=== PATIENT | female | born 1965 | race Caucasian/White ===

== ENCOUNTER → 2025-05-25 09:29 | Outpatient (REF) | payer OTHER, SELFPAY | LOC: RAD 09:29 | PROVIDERS: ATTENDING PHYSICIAN Surgery Vascular Surgery; FAMILY PHYSICIAN Nurse Practitioner Family | DX: I65.23 Occlusion and stenosis of bilateral carotid arteries (principal) | CPT/HCPCS: 70496; 70498; Q9967 ==

== ENCOUNTER 2025-07-02 06:13 | Inpatient (IN) | payer OTHER, SELFPAY ==
[2025-06-29 09:15] VITALS: BMI 25.3
[2025-06-29 10:07] LABS: Hematocrit 41.8 % (37.0-47.0); Hemoglobin 14.0 g/dL (12.0-16.0); Mean Corp Hgb Conc. 33.5 g/dL (33.0-37.0); Mean Corpuscular Volume 92.5 fL (81.0-99.0); Nucleated Red Blood Cells % 0 %; Platelet Count 238 10^3/uL (130-400); Red Cell Dist. Width 11.9 % (11.5-14.5)
[2025-06-29 10:14] LABS: INR 0.96; PT 13.0 Sec (11.4-14.6)
[2025-06-29 10:15] LABS: APTT 27.0 Sec (23.4-35.0)
[2025-06-29 10:39] LABS: Blood Urea Nitrogen 13 mg/dl (7-17); Calcium 10.0 mg/dl (8.4-10.2); Carbon Dioxide 24 mmol/L (22-30); Chloride 106 mmol/L (98-107); Estimated Creatinine Clearance 80 ml/min; Glucose 144 mg/dl (70-99); Potassium 4.6 mmol/L (3.5-5.1); Sodium 141 mmol/L (135-145); eGFR > 60.00
[2025-07-02] VITALS (8 sets, daily range): BP systolic 98–161; BP diastolic 61–84; BMI 25.4
[2025-07-02] MEDS: PERIDEX 0.12% ORAL RINSE 15 ML PO (06:44)
[2025-07-02] MEDS: NSS 500 IV (06:44)
[2025-07-02] MEDS: BACTROBAN NASAL 1 GRAM NASAL (06:44)
--- NOTE | 2025-07-02 07:09 | W.SUR.PREOP ---
Pre-Operative Surgical Note
-
I have examined this patient prior to the performance of the scheduled procedure.
The patient's condition is unchanged from the time of the current History and
Physical and the patient is able to undergo the scheduled procedure.
--- NOTE | 2025-07-02 09:27 | OR.RPT ---
Operative Report
Operative Report
PROCEDURE DATE: 07/02/2025
Preoperative diagnosis: Critical left carotid artery stenosis, asymptomatic.
Postoperative diagnosis: Same
Procedure: Left carotid endarterectomy with bovine pericardial patch angioplasty and intraoperative EEG/SSEP monitoring. Intraoperative temporary shunt placement.
Surgeon: Gabo
Rotor Casting Machine Setup Operator: RHEA Ko, required for all aspects of procedure including assistance with traction/countertraction, following a suture line, assistance with closure.
Complications: None
Anesthesia: General
Indications for procedure:
Severe critical left carotid artery stenosis. Risk/benefits/alternatives of endarterectomy fully discussed. Patient understood all wished to proceed.
Description of procedure:
Patient was identified brought to the operating room placed on the table in supine position. After the adequate administration of anesthesia and perioperative antibiotics she was prepped and draped in the standard surgical fashion. A standard
preoperative timeout was undertaken and everybody was in agreement the plan. A standard longitudinal incision was made in the left neck that was carried through the skin subcutaneous tissue. Using the electrocautery dissection was carried through
the platysma muscle layer and then alongside the anterior medial border of the sternocleidomastoid muscle. Then using a combination of sharp dissection with the Metzenbaum scissors and electrocautery I dissected along the anterior medial border of
the internal jugular vein. The common facial vein branch was ligated between silk ties and then divided. I then deepened my retraction. The common carotid artery was identified and carefully dissected away from the surrounding structures take
great care to avoid any injury to the structures. A vessel loop was passed around it which was double looped, but not yet tightened. Note the vagus nerve was clearly visualized in its usual course lateral/posterior lateral to the common carotid
artery, and was protected from harm's way. I then continued my dissection up the common carotid artery to the bulb staying only on the anterior surface of the carotid artery. Then I carried the dissection up to the internal carotid artery and then
to the distal internal carotid artery. I identified where it was soft and carefully circumferentially dissected the internal carotid artery with minimal mobilization and passed a vessel loop around it. Note the hypoglossal nerve was visualized and
was protected from harm's way. The patient was given an appropriate dose of heparin 6000 units. Next I dissected the anterior surface of the external carotid artery and superior thyroid branches. These were then carefully circumferentially
dissected with minimal mobilization and vessel loops passed around these which were double looped but not yet tightened. After 3 minutes of heparin circulation time and confirmation of optimization of the blood pressure with my anesthesiology
colleagues, I clamped the distal internal carotid artery where it was soft. There was no immediate EEG or SSEP changes. After 1 minute of test clamp time there was no changes noted. Therefore at this point, the vessel loops on the external
carotid artery and superior thyroid branches were tightened and the common carotid artery was clamped where it was soft proximally. An arteriotomy was made on the common carotid artery with an 11 blade and extended using a Quan scissor. I
extended the arteriotomy onto the internal carotid artery beyond the origin, slightly more distally where the plaque ended.. Notes the plaque was noted to be predominantly soft plaque as noted on CT scan, resulting in severe stenosis as well. A
Schlater was then used to begin to endarterectomize the plaque. It was at this point, that there were EEG changes with slowing. Therefore we quickly prepared a shunt. (In [place] shunt). The shunt was inserted into the internal carotid artery
distally, and allowed to backbleed. (Vessel loop had been placed temporarily around the internal carotid artery to control for backbleeding from the internal carotid artery). Next, I inserted the shunt into the common carotid artery (again vessel
loop had been placed which was double looped and now tightened around the shunt). Distally I exchanged my vessel loop for a shunt clamp. EEG tracings returned to baseline.
At this point, an endarterectomy plane was created, and the plaque was then endarterectomized. Distally I feathered the plaque out to a nice clean endpoint in the distal internal carotid artery. Next I endarterectomized the intima back to normal
intima in the common carotid artery, and the intima was cut flush there. I then grasped the plaque and everted plaque out of the origin of the external carotid artery. The plaque was then sent off for specimen. The origin of the external carotid
artery was carefully visualized and any fine debris were removed with fine forceps. Proximal and distal endpoints were then carefully inspected. Any fine debris was removed with fine forceps, and the intima was noted to be nicely adherent
proximally and distally. Next any fine debris were removed throughout the endarterectomy bed with fine forceps. I then flushed heparinized saline. I was very satisfied. Then, I used a bovine pericardial patch to sew a patch angioplasty with a
running 6-0 Prolene suture. I ran the suture line around, but prior to completing the suture line, I removed the shunt. The internal and common carotid artery were reclamped. Now I quickly completed my suture line. Prior to fully completing and
tying down my suture line, I backbled sequentially each branch and reclamped each branch prior to unclamping the next branch. I then irrigated with heparinized saline. Then I completed and tied down my suture line. We then restored flow in the
common carotid and external carotid arteries. Finally, we released flow in the internal carotid artery. Note there was again temporarily slowing on EEG tracings after the shunt was removed. But immediately upon releasing the internal carotid
artery clamp, EEG baselines resume to normal. There was excellent pulsatile flow in all 3 vessels. There was an excellent Doppler signal in the internal carotid artery distal to the patch with a good normal low resistance Doppler signal. There
was a good Doppler signal in the external carotid artery as well. A couple 6-0 Prolene otphez-[id number]-pbpjd sutures were placed along any bleeding points along the suture line. Protamine was given to reverse the heparin. Hemostasis was completely
achieved. We then irrigated and confirmed full hemostasis. We then closed in layers with 2-0 Vicryl layer to reapproximate the sternocleidomastoid muscle, followed by 3-0 Vicryl platysma muscle running layer, followed by 4-0 Monocryl subcuticular
stitch. Dermabond was applied. The patient tolerated procedure well. She awoke moving all extremities to command with tongue in the midline. All sponge, needle, instrument counts were correct at the end of the case. Patient was transported to
recovery room in stable condition.
--- NOTE | 2025-07-02 09:30 | W.SUR.POST ---
Surgical Immediate Post Op
Note
Pre Op Diagnosis: Left carotid stenosis
Post Op Diagnosis: Left carotid stenosis
Procedure Performed: Left carotid endarterectomy with bovine patch angioplasty under EEG monitoring
Primary Surgeon: Arnel Ayon MD
Hydraulic Press In Operator: MASSIEL Maya
Anesthesia: GETA
Estimated Blood Loss: 25ml
Fluids: See anesthesia flow sheet
Drains/Shunts: N/A
Specimens/Cultures: Left carotid plaque
Doppler/Duplex/Angio (Y/N): Y, Doppler
Complications: None
Operative Findings: Required intraoperative shunting, upon awakening from anesthesia moved BL UE and LE to command and spontaneously
[2025-07-02] MEDS: DILAUDID 0.5 MG IV (10:10)
[2025-07-02] MEDS: DILAUDID 0.25 MG IV (10:26)
[2025-07-02 10:45] LABS: Hematocrit 35.6 % (37.0-47.0); Hemoglobin 12.2 g/dL (12.0-16.0); Mean Corp Hgb Conc. 34.3 g/dL (33.0-37.0); Mean Corpuscular Volume 91.0 fL (81.0-99.0); Platelet Count 214 10^3/uL (130-400); Red Cell Dist. Width 11.9 % (11.5-14.5)
--- NOTE | 2025-07-02 11:40 | PTCARENOTE ---
Received pt from PACU monitored with RN, & left radial arterial line transduced. Pt is awake and alert, no neurological deficits upon arrival. Left neck incision DICE TABLE OPERATOR with Dermabond surgical adhesive. Incision is approximated with slight ecchymosis
along the incision line. Ice pack intact. Left hand #20g protective catheter flushed and patent. 0.9nss@80ml/hr started. Left AC#18g protective catheter flushed and patent. Left radial arterial line transduced, calibrated and monitored with all
ports patent and secured. Biopatch present at insertion site. Pt was instructed to limit movement of her left wrist to ensure accurate BP measurement. She was informed of the plan of care regarding hourly neuro checks, expected ambulation time, use
of call fields and visiting policy. She verbalized her understanding. Lungs CTA, 2 liters nasal cannula 98%. BSX4 & hyperactive. S/P void in PACU. Safe environment maintained.
[2025-07-02] MEDS: NSS 1000 IV ×2 (11:45→22:11)
[2025-07-02] MEDS: TYLENOL 650 MG PO ×2 (14:10→18:13)
[2025-07-02] MEDS: THERAGRAN 1 TABLET PO (14:11)
[2025-07-02] MEDS: MAGNESIUM OXIDE 500 MG PO (14:11)
--- NOTE | 2025-07-02 14:38 | PTCARENOTE ---
No changes. She tolerated clear liquids. She verbalized that she is surprised that she feels this good. Stroke packet obtained and specifically reviewed the S/S of stroke, and interventions to take. She verbalized her understanding.
[2025-07-02 14:43] LABS: INR 1.00; PT 13.7 Sec (11.4-14.6)
[2025-07-02 14:44] LABS: APTT 25.7 Sec (23.4-35.0)
[2025-07-02 14:56] LABS: Blood Urea Nitrogen 9 mg/dl (7-17); Calcium 9.5 mg/dl (8.4-10.2); Carbon Dioxide 21 mmol/L (22-30); Chloride 107 mmol/L (98-107); Estimated Creatinine Clearance 78 ml/min; Glucose 243 mg/dl (70-99); Magnesium 1.8 mg/dl (1.6-2.3); Potassium 4.4 mmol/L (3.5-5.1); Sodium 140 mmol/L (135-145); eGFR > 60.00
--- NOTE | 2025-07-02 15:58 | CON.INTV ---
Addendum entered and electronically signed by Alana Keene MD 07/03/25 10:47:
07/03
Patient scheduled for discharge home today.
Kitchen Utility Associate service will be available as needed
Original Note:
Consultation
Consultation Request
Date/Time Consultation Requested: 07/02/2025
Date/Time Consultation Performed: 07/02/2025
Medical History
-
Chief Complaint: Carotid artery disease
History of Present Illness:
Patient is a 59-year-old female with known history of smoking, coronary artery disease who was evaluated in the vascular surgery clinic for the finding of carotid artery stenosis in 05/2025. Patient was recommended to have carotid endarterectomy
and TCAR and was today admitted to the hospital for elective surgery. Postprocedure, she was admitted to ICU and curing oven attendant consultation was requested for further input.
Past medical history. Coronary artery disease, hypertension, hyperlipidemia, history of smoking.
Social history. Smoked 1-5 cigarettes over the years, intermittently with periods of no smoking. Currently not smoking.
Allergies / Home Medications
Allergies
Allergy/AdvReac Type Severity Reaction Status Date / Time
latex Allergy Anaphylaxis Verified 07/02/25 06:23
Home Medications
�Medication �Instructions �Recorded �Confirmed �Last Taken �Type
Cbd-Thc 2.5 mg PO PRN PRN insomnia 06/25/25 07/02/25 06/29/25 08:00 History
Probiotic 1 cap PO DAILY Supplement 06/25/25 07/02/25 06/27/25 08:00 History
aspirin 81 mg tablet,delayed 81 mg PO HS Blood Clot 06/25/25 07/02/25 07/01/25 21:00 History
release Prevention/Tx
atorvastatin 40 mg tablet 40 mg PO HS High Cholesterol 06/25/25 07/02/25 07/01/25 21:00 History
collagen 1 gummy PO DAILY@1300 Supplement 06/25/25 07/02/25 06/27/25 08:00 History
magnesium 250 mg tablet 500 mg PO DAILY@1300 Electrolyte 06/25/25 07/02/25 06/27/25 08:00 History
Repletion
quxwjnel-sra-vsjg-FA-Ca carb-vit K 1 tab PO DAILY@1300 Supplement 06/25/25 07/02/25 06/27/25 08:00 History
18 mg iron-400 mcg-500 mg tablet
omega-3 fatty acids-fish oil 684 1 cap PO DAILY@1300 Supplement 06/25/25 07/02/25 06/27/25 08:00 History
mg-1,200 mg capsule,delayed release
vitamin D3-vitamin K2 1 cap PO DAILY@1300 Supplement 06/25/25 07/02/25 06/27/25 08:00 History
zinc acetate 50 mg (zinc) capsule 50 mg PO DAILY@1300 Supplement 06/25/25 07/02/25 06/27/25 08:00 History
Review of Systems
-
Hematologic/Lymphatic: Other (All 14 systems reviewed and negative except as stated above in the history of present illness.)
Vitals / Labs / Diagnostic Testing
Vital Signs
Temp Pulse Resp BP Pulse Ox
98.1 F 84 13 109/61 97
07/02/25 15:53 07/02/25 15:00 07/02/25 15:00 07/02/25 11:15 07/02/25 15:53
Lab Data
07/02/25 10:38
07/02/25 14:23
Laboratory Results
07/02/25
14:23
PT 13.7
INR 1.00
APTT 25.7
Diagnostic Testing:
Physical Exam
-
HEENT: Normocephalic
Cardiovascular: S1/S2
Respiratory: Clear
GI: Soft and Non Distended
Neurology: Awake and Alert
Skin: Warm
General: Comfortable
Assessment
-
Patient is s/p Left carotid endarterectomy with bovine pericardial patch angioplasty and intraoperative EEG/SSEP monitoring. Intraoperative temporary shunt placement by vascular surgery service, POD #0
Continue observation following procedure
Follow neurovascular checks per protocol
ASA, Statins
Follow BP monitoring and parameters as set by primary team
Cardiac history reviewed
Monitor on telemetry
Pain control per protocol
RASS goal 0
No prior history of pulmonary disease, intermittent smoking history. Currently not smoking. Not on any inhalers.
CXR reviewed indicating no acute disease
No prior PFTs for review
Encouraged IS
Diet advancement per protocol
Aspiration precautions
GI prophylaxis: Protonix
Cr at baseline, follow UO
Critical I/Os
Void trials
Replete electrolytes as needed
No signs/symptoms suspicious for infectious etiology at this time
Will observe off antibiotics for now
Follow temperatures/CBC
Hb and platelets postoperatively stable
DVT prophylaxis: Heparin
Other medical diagnoses:
- CAD, Calcium score 719. (ECHO and Stress test negative)
- Carotid artery stenosis
- HLD
- HTN
- H/o Smoking. Currently not smoking. No pulmonary symptoms.
- DM
Critical Care time 55 mins -- The patient is admitted for acute critical illness for the treatment of vital organ failure and/or prevention of further life-threatening conditions. Total care includes time spent in review of history, physical exam,
medications, hemodynamic/ventilator parameters, laboratory data, imaging and discussion with house staff, pharmacy, respiratory therapy, family services manager, and nursing.
Data:
CXR 06/2025: Unremarkable
CTA Head/Neck 05/2025: 1. Mixed plaque within the left carotid bulb, measurements consistent with approximately 70% stenosis.
2. Approximately 50% stenosis within the right carotid bulb.
--- NOTE | 2025-07-02 16:32 | PTCARENOTE ---
No changes. Voided large amount of clear yellow urine. She was made aware that her glucose was elevate. When asked she stated her HgbA1c is around 5.9. I encouraged her to limit carbohydrates and added sugars. She verbalized her understanding.
[2025-07-02 19:00] LABS: Hepatitis C Antibody Negative (Negative)
[2025-07-02] MEDS: HEPARIN 5000 UNITS SC (20:10)
[2025-07-02] MEDS: ASPIR LOW (ENTERIC COATED) 81 MG PO (22:11)
[2025-07-02] MEDS: LIPITOR 40 MG PO (22:11)
[2025-07-02] MEDS: ROXICODONE 5 MG PO (22:18)
[2025-07-03] VITALS (8 sets, daily range): BP systolic 116–140; BP diastolic 67–83; BMI 25.6
--- NOTE | 2025-07-03 01:47 | PTCARENOTE ---
Pt received at 19:00. Initial assessment as documented. L neck insicion well approximated, slight bruising--unchanged, and soft to palpation. Intermittently c/o 4-5/10 pain to L neck, PRN oxy given and effective. q1 neuro checks WNL. HURST, equal and
strong.
[2025-07-03] MEDS: ROXICODONE 5 MG PO (03:50)
[2025-07-03 04:03] LABS: Hematocrit 34.1 % (37.0-47.0); Hemoglobin 11.6 g/dL (12.0-16.0); Mean Corp Hgb Conc. 34.0 g/dL (33.0-37.0); Mean Corpuscular Volume 89.7 fL (81.0-99.0); Platelet Count 207 10^3/uL (130-400); Red Cell Dist. Width 12.1 % (11.5-14.5)
[2025-07-03 04:18] LABS: APTT 26.4 Sec (23.4-35.0); INR 0.95; PT 13.1 Sec (11.4-14.6)
[2025-07-03 04:34] LABS: Blood Urea Nitrogen 8 mg/dl (7-17); Calcium 9.8 mg/dl (8.4-10.2); Carbon Dioxide 25 mmol/L (22-30); Chloride 109 mmol/L (98-107); Estimated Creatinine Clearance 78 ml/min; Glucose 131 mg/dl (70-99); Potassium 4.3 mmol/L (3.5-5.1); Sodium 141 mmol/L (135-145); eGFR > 60.00
--- NOTE | 2025-07-03 07:05 | PTCARENOTE ---
Handoff assessment unremarkable. She was informed of the plan of care to have the left radial arterial line dc'd and IVF capped once surgeon reassesses her. She verbalized her understanding. Left neck incision INK GRINDER with Dermabond surgical glue. Lungs
CTA. Oxygen removed. RA pulse ox 98. Hyperactive BSX4. She stated she was hungry. Good peripheral pulses, no edema. Safe environment maintained. Reviewed DC planning, showering and wound care, follow up visits, OOB to chair. Safe environment
maintained.
[2025-07-03 07:27] LABS: Glucose - Point of Care 121 mg/dl (70-99)
[2025-07-03] MEDS: VISBIOME 1 CAP PO (07:53)
[2025-07-03] MEDS: HEPARIN 5000 UNITS SC (07:53)
--- NOTE | 2025-07-03 08:30 | W.PN.VS ---
Addendum entered and electronically signed by Arnel Ayon MD 07/03/25 08:56:
Seen and examined with RHEA Lucio. Agree with findings as noted below. Left neck incision is clean dry and intact. No hematoma. Neurologically no focal deficits, moves all extremities well. Tongue midline. Plan/as discussed and noted below.
Original Note:
Today's Communication / Plan
-
Patient seen evaluated bedside with Dr. Arnel Ayon M.D., below plan reviewed with attending.
Assessment/Plan
-
Assessment: 59-year-old female POD #1 Left carotid endarterectomy with bovine pericardial patch angioplasty and intraoperative EEG/SSEP monitoring. Intraoperative temporary shunt placement.
Plan:
Discontinue arterial line
Discontinue IV fluids
OOB to chair with progression ambulation as tolerated
Continue home medications
Likely discharge later today
Subjective Data
-
Date of Service: July 03, 2025
Patient seen and examined at bedside, offers no complaints. Reports well-managed postoperative pain management. Denies headache, nausea, vomiting, fever, and chills. Reports tolerating p.o. diet.
Objective Data
-
Vital Signs
Temp Pulse Resp BP Pulse Ox
97.9 F 59 11 109/61 97
07/03/25 07:05 07/03/25 06:30 07/03/25 06:30 07/02/25 11:15 07/03/25 06:30
Intake and Output
07/02/25 07/03/25 07/04/25
06:59 06:59 06:59
Intake Total 2340 / 2340
Output Total 1500 / 1500
Balance 840 / 840
Intake:
Oral fluids 720 / 720
IV fluids (Total) 1620 / 1620
Nss 1,000 ml @ 80 mls/hr IV . 1520 / 1520
[id number] [id number] Rx#:[id number]
normasol 100 / 100
Output:
Urine, Voided 1500 / 1500
Other:
Number of approximated MODERATE 1
amounts of urine
Number of approximated LARGE 1
amounts of urine
How many times incontinent 1
Lab Results
07/03/25 03:55
07/03/25 03:55
Calcium 9.8 mg/dl (8.4-10.2) 07/03/25 03:55
Magnesium 1.8 mg/dl (1.6-2.3) 07/02/25 14:23
Physical Exam
-
No apparent distress, resting in bed comfortably
Left neck surgical incision clean, dry, and intact. No evidence of hematoma or edema, face symmetrical, tongue midline
No tachycardia
No dyspnea on room air
Moves bilateral upper extremities and lower extremities to command and spontaneously, with equal strength
--- NOTE | 2025-07-03 09:31 | PTCARENOTE ---
1 assist OOB to the BR & chair. She tolerated it well. Independent with AM care and oral care. No changes.
--- NOTE | 2025-07-03 10:48 | PTCARENOTE ---
Ambulated in the arizmendi monitored w/RN. She tolerated it well and commented 'this feels good'. No deficits while walking. Discharge instructions reinforced. SHe asked for Tylenol prior to going home.
--- NOTE | 2025-07-03 12:13 | PTCARENOTE ---
Pt for discharge. Pt is aware. Pt will notify her daughter of discharge.
--- NOTE | 2025-07-03 12:46 | CM ---
Alert awake oriented patient who lives alone in an apartment with 2 steps to enter.She is independent in driving and all ADLs. She said she is ready for discharge today and dgt Susan will drive her home. She declined need for VN.
No adaptive devices.
No VN/SNF hx.
Pharmacy [facility]
PCP DR Lu
PLAN Home no needs
[2025-07-03] MEDS: TYLENOL 650 MG PO (12:50)
[2025-07-03] MEDS: THERAGRAN 1 TABLET PO (12:50)
[2025-07-03] MEDS: MAGNESIUM OXIDE 500 MG PO (12:50)
--- NOTE | 2025-07-03 14:05 | PTCARENOTE ---
Discharged. Awaiting daughter to arrive. She was encouraged to create a patient portal so that she will have information regarding her hospitalization and to keep a close eye on her dietary intake of sugar and to keep follow-up appointments. Other
discharge instructions already documented.
== END 2025-07-03 14:32 | disposition home or self-care (01) | DRG 39 ==
LOC: ICU 06:13
PROVIDERS: Nurse Practitioner; ADMITTING PHYSICIAN Surgery Vascular Surgery; CONSULT PHYSICIAN Internal Medicine; PRIMARYCARE PHYSICIAN Nurse Practitioner Family
PROC: 03UL0KZ Supplement Left Internal Carotid Artery with Nonautologous Tissue Substitute, Open Approach (ICD-10-PCS; 2025-07-02)
PROC: 03CL0ZZ Extirpation of Matter from Left Internal Carotid Artery, Open Approach (ICD-10-PCS; 2025-07-02)
DX: I65.22 Occlusion and stenosis of left carotid artery (principal); I25.10 Atherosclerotic heart disease of native coronary artery without angina pectoris; I10 Essential (primary) hypertension; E78.00 Pure hypercholesterolemia, unspecified; Z60.2 Problems related to living alone; Z91.040 Latex allergy status; Z87.891 Personal history of nicotine dependence
CPT/HCPCS: 35301; 36415; 71045; 71046; 80048; 82962; 83735; 85025; 85027; 85610; 85730; 86803; 86850; 86900; 86901; 88304; 88311; 93005; 95938; 95941; 95955

== ENCOUNTER → 2025-08-17 13:44 | Outpatient (REF) | payer OTHER, SELFPAY | LOC: RAD 13:44 | PROVIDERS: ATTENDING PHYSICIAN Registered Nurse; FAMILY PHYSICIAN Nurse Practitioner Family | DX: I65.23 Occlusion and stenosis of bilateral carotid arteries (principal) | CPT/HCPCS: 93880 ==